=== PATIENT | female | born 1970 | race Caucasian/White ===

== ENCOUNTER 2016-06-08 14:55 | Emergency (ER) | payer OTHER ==
--- NOTE | ~2016-06-08 | CR181 ---
[facility] A Service of [facility] RADIOLOGY TEXT RESULTS PATIENT: JENNIFER STONER LOCATION: SED : 72 UNIT #: [id number] AGE: [address]: David Goldstein MD SEX: F ORDER DR: [id number] [place] [id number] E MR#: [id number] Acc #: [id number] NAME: JENNIFER STONER : 1970 SEX: F STUDY DATE/TIME: 06/08/2016 15:21 UNIT: SED ROOM: STUDY DESCRIPTION: CR Lumbar Spine 2 or 3 Views Attending Physician: David Goldstein M.D. Ordering Physician: David Goldstein M.D. Primary Care Physician: Tracy Bruce A.P.R.N. MEDICAL IMAGING REPORT This report is preliminary unless electronic signature is present. EXAM Lumbar spine series, 06/08/2016 COMPARISON Lumbar spine series, 06/16/2015 HISTORY Status post fall last p.m. Patient fell down stairs with low back pain which got worst today. FINDINGS 3 views of the lumbar spine were obtained. There is a superior endplate compression fracture with mildly displaced fracture fragments anteriorly. No retropulsion of fragment is noted into the canal. There is probably 20% to 25% vertebral body height loss. This fracture was also noted in the previous study from last year. Superimposed mild acute component on an unhealed chronic fracture cannot be excluded given the history. Remaining lumbar vertebrae demonstrate no obvious acute fracture or subluxation. Degenerative changes are noted at L5-S1 disc and in bilateral facet joints. Pre and paravertebral soft tissues demonstrate evidence of cholecystectomy. Dictated by... Sean Hunt M.D. THIS IS AN ELECTRONICALLY VERIFIED REPORT Sean Hunt M.D. at 06/09/2016 1:47 PM CPR/ljd TD: 06/09/2016 02:08 JOB #: [id number] [facility] A Service of [facility] RADIOLOGY TEXT RESULTS PATIENT: JENNIFER STONER LOCATION: [facility] [place] : 72 UNIT #: [id number] AGE: [address]: David Goldstein MD SEX: F ORDER DR: MEDICAL IMAGING REPORT Page 1 of 1
--- NOTE | ~2016-06-08 | CT52 ---
[facility] A Service of [facility] RADIOLOGY TEXT RESULTS PATIENT: JENNIFER STONER LOCATION: SED : 72 UNIT #: [id number] AGE: [address]: David Goldstein MD SEX: F ORDER DR: [id number] [address] [address] [id number] E MR#: [id number] Acc #: [id number] NAME: JENNIFER STONER : 1970 SEX: F STUDY DATE/TIME: 06/08/2016 15:29 UNIT: SED ROOM: STUDY DESCRIPTION: CT Cervical Spine Wo Cont Attending Physician: David Goldstein M.D. Ordering Physician: David Goldstein M.D. Primary Care Physician: Tracy Bruce A.P.R.N. MEDICAL IMAGING REPORT This report is preliminary unless electronic signature is present. EXAM CT C-spine without contrast, 06/08/2016 COMPARISON Plain film cervical spine dated 04/10/2008. HISTORY Status post fall last p.m. Patient fell down stairs with neck pain. Headache all lower and low back pain. It is worse today. This CT exam was performed with one or more of the following radiation dose reduction techniques: automatic exposure control, adjustment of mA and/or kV according to patient size, and iterative reconstruction. FINDINGS CT of the C-spine was obtained without contrast in the axial plane followed by sagittal and coronal reformats. Vertebral body heights and alignment are preserved. There is a tiny calcification/bony fragment noted along the anterior aspect of C4-5 disc space, chronic-appearing. No subluxation, jumped or purged facet joints are seen. C1-2 and C7-T1 junctions are intact. C2-3: Disc osteophyte complex without canal stenosis or neural foraminal narrowing. C3-4: Disc osteophyte complex with right uncinate spur, severe right neural foraminal narrowing. No canal stenosis. C4-5: Mild disc osteophyte complex without canal stenosis or neural foraminal narrowing. C5-6: Disc osteophyte complex with bilateral uncinate spurs, [id number] right and cjso-va-tahbtqbp left neural foraminal STS. [facility] A Service of [facility] & [facility] RADIOLOGY TEXT RESULTS PATIENT: JENNIFER STONER [place] [facility] [place] 72 [place]IT #: [id number] AGE: [address]: David Goldstein MD SEX: F ORDER DR: narrowing. Borderline-sized canal. C6-7: Disc osteophyte complex with bilateral uncinate spurs, jxqs-du-kqltiuzn left and mild right neural foraminal narrowing. No canal stenosis. C7-T1: Unremarkable. IMPRESSION 1. No acute fracture or subluxation. 2. Degenerative changes of the cervical spine, relatively worse at C3-4 with right neural foraminal narrowing. There is also bilateral C5-6 mild neural foraminal narrowing is seen along with left C6-7. 3. There is focal calcification/bony fragment noted along the anterior aspect of C4-5 disc space. It is probably a calcification related to anterior longitudinal ligament, benign. It has a nonaggressive appearance. Old trauma cannot be excluded. Dictated by... Sean Hunt M.D. THIS IS AN ELECTRONICALLY VERIFIED REPORT Sean Hunt M.D. at 06/09/2016 1:47 PM CPR/avel TD: 06/09/2016 02:16 JOB #: [id number] MEDICAL IMAGING REPORT Page 1 of 1
--- NOTE | ~2016-06-08 | CT71 ---
[facility] A Service of [facility] RADIOLOGY TEXT RESULTS PATIENT: JENNIFER STONER LOCATION: SED : 72 UNIT #: [id number] AGE: [address]: David Goldstein MD SEX: F ORDER DR: [id number] [place] [id number] E MR#: [id number] Acc #: [id number] NAME: JENNIFER STONER : 1970 SEX: F STUDY DATE/TIME: 06/08/2016 15:09 UNIT: SED ROOM: STUDY DESCRIPTION: CT Head Wo Contrast Attending Physician: David Goldstein M.D. Ordering Physician: David Goldstein M.D. Primary Care Physician: Tracy Bruce A.P.R.N. MEDICAL IMAGING REPORT This report is preliminary unless electronic signature is present. EXAM CT brain without contrast HISTORY Headache after fall yesterday TECHNIQUE This CT exam was performed with one or more of the following radiation dose reduction techniques: automatic exposure control, adjustment of mA and/or kV according to patient size, and iterative reconstruction. FINDINGS CT brain without contrast demonstrates an 8 mm intraparenchymal hemorrhage in the posterior left parietal subcortical white matter. No adjacent mass effect. No additional intracranial hemorrhage. No midline shift or ventricular dilatation. No extraaxial fluid collection. IMPRESSION 8 mm acute intraparenchymal hemorrhage in the posterior left parietal subcortical white matter. No adjacent edema or mass effect. No additional acute finding. No ventricular dilatation. STAT * RESULT Dictated by... Chris Arden Jose M.D. THIS IS AN ELECTRONICALLY VERIFIED REPORT [facility] [place] [facility]Y TEXT RESULTS PATIENT: JENNIFER STONER LOCATION: SED : 72 UNIT #: [id number] AGE: [address]: David Goldstein MD SEX: F ORDER DR: Chris Jose M.D. at 06/08/2016 11:26 PM DFL/west TD: 06/08/2016 15:59 JOB #: [id number] MEDICAL IMAGING REPORT Page 1 of 1
[~2016-06-08 14:55] MED LIST: AUGMENTIN875 M1; BACTROBAN15 GM TOP; BENADRYL ALLERG25 M1 PO; CELEXA10 MG PO; EFFEXOR75 M3; FLEXERIL PO; FLONASE 0.05% N16 G1; KETOPROFEN PO; LORTAB 7.5-5001 TAB PO; MEDROL DOSEPAK4 MG PO; NO MEDICATIONS; PERCOCET 7.5/321 TAB PO; SUDAFED; VESICARE5 MG; VOLTAREN75 MG; ZITHROMAX PO; ZYRTEC10 M2 PO
[2016-06-08 17:05] LABS: BASOPHIL# 0.1 X10e3 (0-0.3); BASOPHIL% 0.9 % (0-2.5); EOSINOPHIL# 0.1 X10e3 (0-0.7); EOSINOPHIL% 1.8 % (0.0-7.0); HEMATOCRIT 38.8 % (35.0-45.0); HEMOGLOBIN 13.1 gm/dL (12.0-16.0); LYMPHOCYTE# 2.1 X10e3 (1.0-3.5); LYMPHOCYTE% 34.3 % (17.0-45.0); MEAN CELL VOLUME 90.4 FL (83-96); MEAN CORPUSCULAR HEMOGLOBIN 30.6 PG (28-34); MEAN CORPUSCULAR HGB CONC 33.9 g/dL (30-36); MEAN PLATELET VOLUME 8.7 FL (6.5-11.5); MONOCYTE# 0.7 X10e3 (0-1.0); MONOCYTE% 12.4 % (3.0-12.0); NEUTROPHIL% 50.6 % (40-75); PLATELET COUNT 224 X10e3 (140-420); RED BLOOD COUNT 4.29 X10e (3.90-5.30); RED CELL DISTRIBUTION WIDTH 12.6 % (11.0-15.5)
[2016-06-08 17:10] LABS: DIFF IND NO
[2016-06-08 17:23] LABS: BILIRUBIN,TOTAL 0.5 mg/dL (0.2-2.0); CALCIUM SERUM 8.7 mg/dL (8.4-10.2); CREATININE SERUM 0.6 mg/dL (0.6-1.4); GLOM FILT RATE Estimated 110.9 mL/min (>60); POTASSIUM 4.1 mmol/L (3.5-5.1); PROTEIN TOTAL SERUM 6.7 g/dL (6.0-8.3)
== END 2016-06-08 19:07 | disposition hospice, home (50) ==
LOC: SED 14:55
PROVIDERS: Emergency Medicine
DX: S06.330A Contusion and laceration of cerebrum, unspecified, without loss of consciousness, initial encounter (principal); F32.9 Major depressive disorder, single episode, unspecified; Z87.891 Personal history of nicotine dependence; W10.9XXA Fall (on) (from) unspecified stairs and steps, initial encounter; Y92.009 Unspecified place in unspecified non-institutional (private) residence as the place of occurrence of the external cause
CPT/HCPCS: 36415; 70450; 72100; 72125; 80053; 85025; 96374; 99285; J1953

== ENCOUNTER → 2016-10-10 | Outpatient (CLI) | payer OTHER ==
--- NOTE | ~2016-10-10 | CR58 ---
[facility] A Service of [facility] RADIOLOGY TEXT RESULTS PATIENT: JENNIFER STONER LOCATION: [facility] : 72 UNIT #: [id number] AGE: [address]: Tracy Bruce SEX: F ORDER DR: [id number] [place] [id number] O MR#: [id number] Acc #: [id number] NAME: JENNIFER STONER : 1970 SEX: F STUDY DATE/TIME: 10/10/2016 9:00 UNIT: [facility] ROOM: STUDY DESCRIPTION: CR Cervical Spine 2 or 3 Views Attending Physician: Tracy Bruce A.P.R.N. Referring Physician: Tracy Bruce A.P.R.N. Ordering Physician: Tracy Bruce A.P.R.N. Primary Care Physician: Tracy Bruce A.P.R.N. MEDICAL IMAGING REPORT This report is preliminary unless electronic signature is present. EXAM Cervical spine 2-3 views HISTORY Cervicalgia. Posterior neck pain for 6 months. Low back fracture 1 year ago. TECHNIQUE AP, lateral and odontoid views of the cervical spine are reviewed. COMPARISON STUDIES CT from 06/08/2016. FINDINGS There is a few millimeters of anterolisthesis of C4 on C5, probably degenerative. There is some minor endplate spondylitic change present posteriorly at C5-C6 and C6-C7 with subtle loss of intervertebral disc height. Prevertebral soft tissues are normal. No acute fracture or bone destruction. If more information is needed, patient is best further evaluated with MRI, if a candidate. IMPRESSION Plain film evidence of degenerative disease. If more information is need, patient is best further evaluated with MRI, if a candidate. Dictated by... Delia Hassan M.D. THIS IS AN ELECTRONICALLY VERIFIED REPORT [facility] A Service of [facility] RADIOLOGY TEXT RESULTS PATIENT: JENNIFER STONER LOCATION: [facility] : 72 UNIT #: [id number] AGE: [address]: Tracy Bruce SEX: F ORDER DR: Delia Hassan M.D. at 10/13/2016 1:56 PM SAC/pcl TD: 10/10/2016 22:30 JOB #: [id number] MEDICAL IMAGING REPORT Page 1 of 1
== END | disposition home or self-care (01) ==
LOC: SRAD 08:50
DX: M54.9 Dorsalgia, unspecified (principal)
CPT/HCPCS: 72040